=== PATIENT | male | born 1975 | race Caucasian/White ===

== ENCOUNTER 2017-08-06 13:12 | Inpatient (IN) | payer OTHER ==
[~2017-08-06] VITALS: Ht 188 cm; Wt 101.0 kg
--- NOTE | ~2017-08-06 | HC ---
[facility] [place] [address] CONSULTATION Name: FARHANA CA Room #: 206-P [facility] IN ..#: [id number] Admission: 08/06/17 Attend Phys: Keith Gupta MD Discharge: 08/07/17 Date of : 79 Report #: [id number] THIS REPORT FOR: //name// CC: Keith Raphael DATE OF SERVICE: 08/06/2017 REASON FOR CONSULTATION: Chest pain. HISTORY OF PRESENT ILLNESS: This is a very pleasant 42-year-old disabled male secondary to severe degenerative joint disease and back pain, presented for evaluation of chest discomfort. The patient states he has chronic cholecystitis and was scheduled for a gallbladder removal. He has had epigastric and substernal pain for quite some time attributed to this cholecystitis. Upon questioning, the patient had developed some symptomatology in the epigastric region. He had been having constant pain for approximately 24 hours when in [facility]. He underwent nuclear perfusion scanning, which apparently was negative, although the results are not available to me. The patient states that he has been with constant discomfort for over 24 hours. He subsequently was transferred for subsequent cardiac evaluation due to the persistence of discomfort with a normal perfusion scan. Upon questioning, the patient states this is similar to what he has been having previously. He has been ruled out for pulmonary emboli and his chest x-ray is without significant congestion or pneumonia. In addition to this, his ECG has not had any significant current of injury and troponins have been negative. He does have some risk factors including smoking, dyslipidemia, family history of coronary artery disease and hypertension. He had nitroglycerin given to him and has nitroglycerin paste on his chest without any significant improvement. The only improvement he gets is from the intravenous morphine injections, although he has not had a GI cocktail tried. PAST MEDICAL HISTORY: Significant for: 1. Chronic pain syndrome with recent nerve stimulator implanted. 2. Hypertension. 3. Tobacco dependence. 4. Chronic cholecystitis. 5. Psoriatic arthritis. ALLERGIES: CODEINE. PAST SURGICAL HISTORY: Significant for: 1. Implantation of a spinal stimulator 2 weeks ago. 2. Lumbar laminectomy x 2. 3. A broken neck treated conservatively. [facility] [address] [place] [address] CONSULTATION Name: FARHANA CA Room #: 206-P [facility]#: [id number] Admission: 08/06/17 Attend Phys: Keith Gupta MD Discharge: 08/07/17 Date of : 79 Report #: [id number] SOCIAL HISTORY: The patient is , is disabled. Smokes less than 2 packs per day, does not use recreational drugs and has not used alcohol recently. ELECTROCARDIOGRAM: Normal sinus rhythm, nonspecific ST-T wave changes. No current of injury. MEDICATIONS: Elavil, Norvasc, Lipitor, Neurontin, Claritin, Cozaar, Nexium, aspirin. REVIEW OF SYSTEMS: Except for the symptoms previously mentioned and those commensurate with comorbid state, the 10-point review of systems is negative. PHYSICAL EXAMINATION: GENERAL: A well-developed, well-nourished male resting comfortably, in no acute distress. VITAL SIGNS: Noted and reviewed in the chart. HEENT: Normocephalic, atraumatic. Pupils are equal, round, reactive to light and accommodation. Extraocular muscles are intact. Sclerae and conjunctivae are anicteric. NECK: JVD is normal. Carotid upstrokes are bilaterally symmetrical. No bruits are heard. No thyromegaly. No lymphadenopathy. LUNGS: Clear to auscultation. No wheezes, rhonchi or crackles. No CVA tenderness. CARDIAC: Demonstrates a regular rhythm. Normal first and second heart sounds. No ventricular or atrial gallops, no rubs noted. No murmurs. No lifts or heaves, PMI normal. ABDOMEN: Has normal bowel sounds. Mild tenderness in the epigastric and left subcostal region. No rebound or rigidity. EXTREMITIES: Without cyanosis, clubbing or edema. Distal pulses are intact. DTR symmetrical. NEUROLOGIC: Cranial nerves 2-12 are grossly normal and symmetrical. PSYCHIATRIC: Alert, oriented with normal affect. SKIN: Warm and dry. LABORATORY DATA: Troponin less than 0.04. IMPRESSION: 1. Chest pain, not likely cardiac in origin. It has been going on constantly for over 36 hours, has no EKG changes or troponin change. The issue is that it is likely due to his gallbladder and he may be having his chronic cholecystitis that needs to be dealt with. We discussed the methods and ways to deal with that. I am going to wait and see what the GI cocktail does and see whether there is any improvement in symptomatology. If so, then GI workup should be pursued more aggressively. 2. Hypertension. Discussed use of his medications. He had been off it for 4-5 [facility] [address] [place] [address] CONSULTATION Name: FARHANA CA Room #: 859-P [facility] IN M.R.#: [id number] Admission: 08/06/17 Attend Phys: Keith Gupta MD Discharge: 08/07/17 Date of : 79 Report #: [id number] days, but is back on it and doing very well from that standpoint. 3. Tobacco abuse and dependence. I discussed the pros and cons of smoking. I discussed methods that have been successful with other patients. He does voice understanding. 4. Chronic pain syndrome, on medications and the stimulator as per primary care. <ELECTRONICALLY SIGNED> By: Robe Duong MD 08/16/17 1126 36 10 Robe Duong MD /nt
--- NOTE | ~2017-08-06 | S ---
[facility] [place] [address] SURGICAL PATH RPT PROCEDURE Name: FARHANA CA Room #: 206-P [facility] IN M.R.#: [id number] Admission: 08/06/17 Date of : 79 Discharge: 08/07/17 Report #: [id number] Path Case #: [id number] PATHOLOGY REPORT COLLECTION DATE: 08/07/2017 RECEIVED DATE: 08/07/2017 SUBMITTING PHYS: Dr. Zion Erwin, OTHER PHYS: Kassi Thakkar Dr. SPECIMEN(S) RECEIVED: A.Gallbladder * * * * * * * * * * * * FINAL DIAGNOSIS: "Gallbladder", cholecystectomy: - Chronic cholecystitis. (CLW:db; 08/10/2017) PATHOLOGIST: Mary Jo Arias M.D. REPORT ELECTRONICALLY SIGNED BY: Mary Jo Arias M.D. DATE/TIME: 08/10/2017 22:05 * * * * * * * * * * * * GROSS PATHOLOGY: Received in formalin labeled "Farhana Ca, gallbladder," is a 8.2 x 4.0 x 0.9 cm, previously opened gallbladder with dark green, wrinkled serosal surfaces. Opening the gallbladder reveals dark guillen, velvety mucosa and an average wall thickness of 0.2 cm. Calculi are not present and no masses are noted grossly. [employer] sections from the body and fundus are submitted along with the proximal margin in cassette A1. (TSD; 08/07/2017) CLINICAL HISTORY: Chronic cholecystitis INITIAL CPT CODE(S): A; 04204 Professional services performed by [facility] at [facility] [address], [place] [address] Technical services performed by [facility] at [address] [place] [id number]. [facility] [address] [place] [address] SURGICAL PATH RPT PROCEDURE Name: FARHANA CA Room #: 206-P [facility] IN ..#: [id number] Admission: 08/06/17 Date of : 79 Discharge: 08/07/17 Report #: [id number] Path Case #: [id number] [facility] [address] [address] PHONE: [phone] DIRECTOR: Payam Worthy M.D. * * * END OF REPORT * * *
--- NOTE | ~2017-08-06 | EKG ---
[address] [address] ELECTROCARDIOGRAM REPORT Name: FARHANA CA Room #: 206-[facility] IN .R.#: [id number] Admission: 08/06/17 Attend Phys: Keith Gupta MD Discharge: 08/07/17 Date of : 79 Report #: [id number] THIS REPORT FOR: //name// [facility] Test Date: 2017-08-06 Test Time: 15:54:09 Pat Name: FARHANA CA Department: Room: 206 Gender: M Social Work Specialist: Ismael GEORGE : 1975 Requested By: Taisha Keene Order Number: [id number] MD: Jourdan Marti Measurements Intervals [place] Rate: 64 P: 46 NC: 142 QRS: -2 QRSD: 104 T: 21 QT: 412 QTc: 425 Interpretive Statements Sinus rhythm Low voltage, extremity leads No previous ECG available for comparison Electronically Signed On 08-09-2017 13:24:44 CDT by Jourdan Marti [email or web address] <ELECTRONICALLY SIGNED> By: Jourdan Marti MD, [facility] 08/09/17 1324 1554 1554 Jourdan Marti MD, FAC /EPI
[2017-08-06 16:43] VITALS: BP 135/86
[2017-08-06] MEDS ORDERED: AMITRIPTYLINE H25 M2 PO (17:22)
[2017-08-06] MEDS ORDERED: LIPITOR 20 MG T20 M1 PO (17:23)
[2017-08-06] MEDS ORDERED: NORVASC5 MG PO (17:23)
[2017-08-06] MEDS ORDERED: ASPIR 8181 M1 PO (17:23)
[2017-08-06] MEDS ORDERED: NEURONTIN600 MG PO (17:24)
[2017-08-06] MEDS ORDERED: CLARITIN10 MG PO (17:24)
[2017-08-06] MEDS ORDERED: COZAAR 50 MG TA50 M2 PO (17:25)
[2017-08-06] MEDS ORDERED: NEXIUM40 MG PO (17:25)
[2017-08-06] MEDS ORDERED: NF PO ×2 (17:28→17:29)
[2017-08-06 19:17] VITALS: BP 134/70
[2017-08-07 00:06] VITALS: BP 141/99
[2017-08-07 04:23] LABS: CALCIUM 8.5 mg/dL (8.5-10.1); CREATININE 1.2 mg/dL (0.7-1.3); POTASSIUM 3.7 mmol/L (3.5-5.1)
[2017-08-07 05:19] VITALS: BP 117/65
[2017-08-07 07:58] VITALS: BP 123/82
[2017-08-07 11:09] VITALS: BP 122/89
[2017-08-07 16:24] VITALS: BP 148/95
== END 2017-08-07 19:54 | disposition left against medical advice (07) | DRG 419 ==
LOC: 2N 13:12
PROVIDERS: Nurse Practitioner
PROC: 0FT44ZZ Resection of Gallbladder, Percutaneous Endoscopic Approach (ICD-10-PCS; principal; 2017-08-07)
DX: K82.8 Other specified diseases of gallbladder (principal); G89.4 Chronic pain syndrome; I10 Essential (primary) hypertension; F17.210 Nicotine dependence, cigarettes, uncomplicated; E78.5 Hyperlipidemia, unspecified; K21.9 Gastro-esophageal reflux disease without esophagitis; Z53.21 Procedure and treatment not carried out due to patient leaving prior to being seen by health care provider; K81.1 Chronic cholecystitis; Z88.5 Allergy status to narcotic agent; Z87.11 Personal history of peptic ulcer disease; Z82.49 Family history of ischemic heart disease and other diseases of the circulatory system; Z71.6 Tobacco abuse counseling
CPT/HCPCS: 10797; 50010; 50101; 50249; 50411; 50555; 50558; 50962; 51975; 52265; 53307; 53310; 54022; 54118; 55245; 55317; 56462; 56525; 56526; 62110; 62900; 70005